=== PATIENT | male | born 1970 | race African-American/Black ===

== ENCOUNTER 2017-04-04 12:31 | Inpatient (IN) | payer OTHER ==
[2017-04-04 13:41] VITALS: BMI 20.3
--- NOTE | 2017-04-04 17:39 | HP ---
CIWA Score - CIWA Score Nausea/Vomitin-Mild Nausea/No Vomiting Muscle Tremors: 4-Moderate,w/Arms Extend Anxiety: 4-Mod. Anxious/Guarded Agitation: 4-Moderately Restless Paroxysmal Sweats: 1-Minimal Palms Moist Orientation: 2-Disoriented Date<2 days Tacttile Disturbances: 0-None Auditory Disturbances: 0-None Visual Disturbances: 0-None Headache: 0-None Present CIWA-Ar Total Score: 16 Admission ROS S - HPI Chief Complaint: WITHDRAWAL SX Allergies/Adverse Reactions: Allergies Allergy/AdvReac Type Severity Reaction Status Date / Time cashew nut Allergy Verified 04/04/17 17:46 peanut Allergy Verified 04/04/17 17:46 Penicillins Allergy Verified 04/04/17 17:46 History of Present Illness: 46 YEARS OLD MALE WITH LONG HISTORY OF ALCOHOL NICOTINE DEPENDENCE HAS HYPERTENSION LAST ANTIHYPERTENSANT 03/2016 WEIGHT LOSS, HIV SINCE 2002 TREATED WITH COMPLERA X 2 YEARS NONE COMPLIANCE WITH MEDICATION AMBULATE WITH CANE DUE TO LEFT HIP SURGERY 2016 AND BIPOLAR II IS ADMITTED TO DETOX Exam Limitations: No Limitations - Ebola screening Have you traveled outside of the country in the last 21 days: No Have you had contact with anyone from an Ebola affected area: No Have you been sick,other than usual withdrawal symptoms: No Do you have a fever: No - Review of Systems Constitutional: Loss of Appetite, Changes in sleep, Unintentional Wgt. Loss, Unexplained wgt Loss EENT: reports: Blurred Vision (NEED EYE GLASSES) Respiratory: reports: SOB with Exertion Cardiac: reports: No Symptoms Reported GI: reports: Nausea, Poor Appetite, Poor Fluid Intake, Abdominal cramping : reports: No Symptoms Reported Musculoskeletal: reports: Back Pain, Joint Pain (LEFT HIP) Integumentary: reports: No Symptoms Reported Neuro: reports: Tremors Endocrine: reports: No Symptoms Reported Hematology: reports: No Symptoms Reported Psychiatric: reports: Judgement Intact, Anxious, Depressed Other Systems: Reviewed and Negative Patient History - Patient Medical History Hx Anemia: No Hx Asthma: Yes Hx Chronic Obstructive Pulmonary Disease (COPD): No Hx Cancer: No Hx Cardiac Disorders: No Hx Congestive Heart Failure: No Hx Hypertension: Yes Hx Hypercholesterolemia: No Hx Pacemaker: No HX Cerebrovascular Accident: No Hx Seizures: No Hx Dementia: No Hx Diabetes: No Hx Gastrointestinal Disorders: No Hx Liver Disease: No Hx Genitourinary Disorders: No Hx Sexually Transmitted Disorders: No Hx Renal Disease (ESRD): No Hx Thyroid Disease: No Hx Human Immunodeficiency Virus (HIV): No Hx Hepatitis C: No Hx Depression: No Hx Suicide Attempt: No Hx Bipolar Disorder: Yes Hx Schizophrenia: No - Patient Surgical History Past Surgical History: Yes Hx Neurologic Surgery: No Hx Cataract Extraction: No Hx Cardiac Surgery: No Hx Lung Surgery: No Hx Breast Surgery: No Hx Breast Biopsy: No Hx Abdominal Surgery: Yes (2 YEARS OLD) Hx Appendectomy: No Hx Cholecystectomy: No Hx Genitourinary Surgery: No Hx Orthopedic Surgery: Yes (2017 LEFT HIP REPLACEMENT) Anesthesia Reaction: No - PPD History Previous Implant?: Yes Documented Results: Negative w/o proof Implanted On Prior [facility] Admission?: No PPD to be Administered?: Yes - Smoking Cessation Smoking history: Current every day smoker Have you smoked in the past 12 months: Yes Aproximately how many cigarettes per day: 3 Cigars Per Day: 0 Hx Chewing Tobacco Use: No Initiated information on smoking cessation: Yes 'Breaking Loose' booklet given: 04/04/17 - Substance & Tx. History Hx Alcohol Use: Yes Hx Substance Use: Yes Substance Use Type: Alcohol, Cocaine Hx Substance Use Treatment: Yes (2010 [facility]) - Substances Abused Alcohol Route: Oral Frequency: Daily Amount used: [place] Age of first use: 16 Date of Last Use: 04/04/17 Family Disease History - Family Disease History Family History: Unremarkable Admission Physical Exam B[facility] - Vital Signs Vital Signs: Vital Signs - 24 hr 04/04/17 13:26 Temperature 98.3 F Pulse Rate 107 H Respiratory 18 Rate Blood Pressure 130/70 - Physical General Appearance: Yes: Appropriately Dressed, Mild Distress, Thin, Tremorous, Irritable, Sweating, Anxious HEENTM: Yes: Hearing grossly Normal, Normal ENT Inspection, Normocephalic, Normal Voice Respiratory: Yes: Chest Non-Tender, Lungs Clear, Normal Breath Sounds, No Respiratory Distress, No Accessory Muscle Use Neck: Yes: Supple, Trachea in good position Breast: Yes: Breasts Symetrical Cardiology: Yes: Regular Rhythm, S1, S2, Tachycardia Abdominal: Yes: Non Tender, Soft, Increased Bowel Sounds, Surgical Scar Genitourinary: Yes: Within Normal Limits Back: Yes: Normal Inspection Musculoskeletal: Yes: Gait Steady (CANE), Back pain, Muscle Pain (LEFT HIP) Extremities: Yes: Normal Inspection (LEFT HIP SCAR), Non-Tender, Tremors Neurological: Yes: Alert, Motor Strength 5/5 (LIMP TO THE LEFT), Normal Response Integumentary: Yes: Warm Lymphatic: Yes: Within Normal Limits - Diagnostic (1) Alcohol dependence with uncomplicated withdrawal Current Visit: Yes Status: Acute (2) Weight loss Current Visit: Yes Status: Acute (3) Hypertension Current Visit: Yes Status: Chronic Qualifiers: Hypertension type: essential hypertension Qualified Code(s): I10 - Essential (primary) hypertension Comment: NO TREATMENT X "YEARS" (4) HIV (human immunodeficiency virus infection) Current Visit: Yes Status: Chronic Comment: NONE COMPLIANCE WITH COMPLERA (5) Use of cane as ambulatory aid Current Visit: Yes Status: Chronic (6) S/p left hip fracture Current Visit: Yes Status: Resolved Comment: 2017 (7) Asthma Current Visit: Yes Status: Chronic Qualifiers: Asthma severity: mild Asthma persistence: intermittent Asthma complication type: with status asthmaticus Qualified Code(s): J45.22 - Mild intermittent asthma with status asthmaticus (8) Bipolar II disorder Current Visit: Yes Status: Suspected Cleared for Admission [facility] - Detox or Rehab [facility] Level of Care: Medically Managed Detox Regimen/Protocol: Librium S Breath Alcohol Content Breath Alcohol Content: 0 Urine Drug Screen - Control Is Test Valid: Yes - Results Drug Screen Negative: No Urine Drug Screen Results: CARRIE-Cocaine
[2017-04-04] MEDS ORDERED: MAGNESIUM HYDROX 2400MG/30ML ORAL SUSPENSION 30 ML CUP PO PRN (17:53)
[2017-04-04] MEDS ORDERED: MAGNESIUM CITRATE 300 ML BOTTLE PO PRN (17:53)
[2017-04-04] MEDS ORDERED: guaiFENesin/D-METHORPHAN HB 10 ML UNIT-DOSE CUPS PO PRN (17:53)
[2017-04-04] MEDS ORDERED: ACETAMINOPHEN 325 MG TABLET (FP) PO PRN (17:53)
[2017-04-04] MEDS ORDERED: NICOTINE POLACRILEX 2 MG GUM BC PRN (17:53)
[2017-04-04] MEDS ORDERED: P-EPHED 60MG/TRIPROLIDI 2.5MG TABLET PO PRN (17:53)
[2017-04-04] MEDS ORDERED: LOPERAMIDE HCL 2 MG CAPSULE PO PRN (17:53)
[2017-04-04] MEDS ORDERED: chlordiazePOXIDE HCL 25 MG CAPSULE PO PRN (17:53)
[2017-04-04] MEDS ORDERED: MENTHOL/PHENOL 1 EACH UD MM PRN (17:53)
[2017-04-04] MEDS ORDERED: MAG HYDROX/AL HYDROX/SIMETH 30 ML UNIT-DOSE CUP PO PRN (17:53)
[2017-04-04] MEDS ORDERED: IBUPROFEN 400 MG TABLET (FP) PO PRN (17:53)
[2017-04-04] MEDS: ALBUTEROL SO4 18 GM HFA INHALER IH SCH ×2 (20:29→22:03)
[2017-04-04] MEDS: chlordiazePOXIDE HCL 25 MG CAPSULE PO SCH (22:03)
[2017-04-04] MEDS: THIAMINE HCL 100 MG TABLET (FP) PO SCH (22:03)
[2017-04-04 22:08] LABS: URINE APPEARANCE CLEAR; URINE BILIRUBIN NEGATIVE (NEGATIVE); URINE BLOOD 2+ (NEGATIVE); URINE COLOR LTYELLOW; URINE GLUCOSE (UA) NEGATIVE (NEGATIVE); URINE KETONE TRACE (NEGATIVE); URINE LEUK ESTERASE TRACE (NEGATIVE); URINE NITRITE NEGATIVE (NEGATIVE); URINE PROTEIN NEGATIVE (NEGATIVE); URINE UROBILINOGEN NEGATIVE mg/dL (0.2-1.0)
[2017-04-04 22:17] LABS: EPI CELLS RARE /HPF (FEW); URINE HYALINE CAST 1 /lpf; URINE MUCUS RARE
[2017-04-05] MEDS: ALBUTEROL SO4 18 GM HFA INHALER IH SCH ×6 (05:37→22:03)
[2017-04-05] MEDS: chlordiazePOXIDE HCL 25 MG CAPSULE PO SCH ×4 (05:40→22:02)
[2017-04-05 10:04] LABS: HEMATOCRIT 38.6 % (35.4-49); HEMOGLOBIN 12.6 GM/dL (11.7-16.9); MCH 28.3 pg (25.7-33.7); MCHC 32.7 g/dl (32.0-35.9); MEAN CELL VOLUME 86.7 fl (80-96); MEAN PLT VOLUME 8.5 fl (7.5-11.1); PLATELET COUNT 234 K/MM3 (134-434); RBC 4.45 M/mm3 (4.00-5.60); RDW 15.9 % (11.9-15.9); WHITE BLOOD COUNT 4.8 K/mm3 (4.0-10.0)
[2017-04-05 10:13] LABS: CHLORIDE 108 mmol/L (98-107); POTASSIUM 3.8 mmol/L (3.5-5.1); SODIUM 144 mmol/L (136-145)
[2017-04-05] MEDS: PRENATAL VITAMINS W/ FOLIC ACID TABLET (FP) PO SCH (10:16)
[2017-04-05] MEDS: NICOTINE 14 MG/24 HOURS TOPICAL PATCH TD SCH (10:17)
[2017-04-05 10:26] LABS: ALBUMIN 3.1 g/dl (3.4-5.0); ALK PHOS 90 U/L (45-117); ANION GAP 10 (8-16); BILIRUBIN,TOTAL 0.5 mg/dL (0.2-1.0); BLOOD UREA NITROGEN 20 mg/dL (7-18); CALCIUM 8.1 mg/dL (8.5-10.1); CO2 26 mmol/L (21-32); CREATININE 1.2 mg/dL (0.7-1.3); GLUCOSE,RANDOM 107 mg/dL (74-106); SGOT/AST 35 U/L (15-37); SGPT/ALT 30 U/L (12-78); TOT PROT 6.5 g/dl (6.4-8.2)
--- NOTE | 2017-04-05 10:44 | PN ---
[facility] CIWA - CIWA Score Nausea/Vomitin-No Nausea/No Vomiting Muscle Tremors: 4-Moderate,w/Arms Extend Anxiety: 4-Mod. Anxious/Guarded Agitation: 4-Moderately Restless Paroxysmal Sweats: 1-Minimal Palms Moist Orientation: 0-Oriented Tacttile Disturbances: 3-Moderate Itch/Numb/Burn Auditory Disturbances: 0-None Visual Disturbances: 0-None Headache: 0-None Present CIWA-Ar Total Score: 16 BHS Progress Note (SOAP) Subjective: ANXIETY,SWEATS,BACK ACHE. Objective: 04/05/17 10:41 Vital Signs Temperature 97.0 F L 04/05/17 10:07 Pulse Rate 84 04/05/17 10:07 Respiratory Rate 18 04/05/17 10:07 Blood Pressure 122/87 04/05/17 10:07 O2 Sat by Pulse Oximetry (%) Laboratory Last Values WBC 4.8 K/mm3 (4.0-10.0) 04/05/17 07:00 RBC 4.45 M/mm3 (4.00-5.60) 04/05/17 07:00 Hgb 12.6 GM/dL (11.7-16.9) 04/05/17 07:00 Hct 38.6 % (35.4-49) 04/05/17 07:00 MCV 86.7 fl (80-96) 04/05/17 07:00 MCH 28.3 pg (25.7-33.7) 04/05/17 07:00 MCHC 32.7 g/dl (32.0-35.9) 04/05/17 07:00 RDW 15.9 % (11.9-15.9) 04/05/17 07:00 Plt Count 234 K/MM3 (134-434) 04/05/17 07:00 MPV 8.5 fl (7.5-11.1) 04/05/17 07:00 Sodium 144 mmol/L (136-145) 04/05/17 07:00 Potassium 3.8 mmol/L (3.5-5.1) 04/05/17 07:00 Chloride 108 mmol/L (98-107) H 04/05/17 07:00 Carbon Dioxide 26 mmol/L (21-32) 04/05/17 07:00 Anion Gap 10 (8-16) 04/05/17 07:00 BUN 20 mg/dL (7-18) H 04/05/17 07:00 Creatinine 1.2 mg/dL (0.7-1.3) 04/05/17 07:00 Creat Clearance w eGFR > 60 (>60) 04/05/17 07:00 Random Glucose 107 mg/dL (74-106) H 04/05/17 07:00 Calcium 8.1 mg/dL (8.5-10.1) L 04/05/17 07:00 Total Bilirubin 0.5 mg/dL (0.2-1.0) 04/05/17 07:00 AST 35 U/L (15-37) 04/05/17 07:00 ALT 30 U/L (12-78) 04/05/17 07:00 Alkaline Phosphatase 90 U/L (45-117) 04/05/17 07:00 Total Protein 6.5 g/dl (6.4-8.2) 04/05/17 07:00 Albumin 3.1 g/dl (3.4-5.0) L 04/05/17 07:00 Urine Color Ltyellow 04/04/17 21:44 Urine Appearance Clear 04/04/17 21:44 Urine pH 5.0 (5.0-8.0) 04/04/17 21:44 Ur Specific [place] 1.014 (1.001-1.035) 04/04/17 21:44 Urine Protein Negative (NEGATIVE) 04/04/17 21:44 Urine Glucose (UA) Negative (NEGATIVE) 04/04/17 21:44 Urine Ketones Trace (NEGATIVE) H 04/04/17 21:44 Urine Blood 2+ (NEGATIVE) H 04/04/17 21:44 Urine Nitrite Negative (NEGATIVE) 04/04/17 21:44 Urine Bilirubin Negative (NEGATIVE) 04/04/17 21:44 Urine Urobilinogen Negative mg/dL (0.2-1.0) 04/04/17 21:44 Ur Leukocyte Esterase Trace (NEGATIVE) 04/04/17 21:44 Urine WBC (Auto) 6 /hpf (3-5) 04/04/17 21:44 Urine RBC (Auto) 7 /hpf (0-3) 04/04/17 21:44 Ur Epithelial Cells Rare /HPF (FEW) 04/04/17 21:44 Hyaline Casts 1 /lpf 04/04/17 21:44 Urine Mucus Rare 04/04/17 21:44 LABS NOTED. Assessment: 04/05/17 10:43 WITHDRAWAL SX Plan: CONTINUE DETOX REPEAT UA;UC ORDERED.
--- NOTE | 2017-04-05 10:45 | CONSULT ---
[facility] Psychiatric Consult - Data Date of interview: 04/05/17 Admission source: SRO Identifying data: Mr Perkins is a 46 years old Black male, father of 4 children, unemployed on [employer], domiciled living in a room seeking detox treatment for alcohol Substance Abuse History: Reports history of alcohol use. He started drinking alcohol at age 16, consumes one pint daily. Last drank on 04/04/17 Medical History: Significant for hypertension, HIV, bronchial astma and history of abdominal surgery and orthosurgery for left hip replacement. Smokes 3 cigarettes Psychiatric History: Denies history of previous psychiatric treatment Physical/Sexual Abuse/Trauma History: Denies history of physical, sexual abuse as well as DV relationship Additional Comment: Reports history of multiple previous arrests including one felony conviction. No parole/probation currently Mental Status Exam - Mental Status Exam Alert and Oriented to: Time, Place, Person Cognitive Function: Fair Patient Appearance: Disheveled Mood: Hopeful, Euthymic Patient Behavior: Cooperative Speech Pattern: Clear Voice Loudness: Normal Thought Process: Intact, Goal Oriented Hallucinations: Denies Suicidal Ideation: Denies Homicidal Ideation: Denies Insight/Judgement: Poor Sleep: Well Appetite: Good Muscle strength/Tone: Normal Gait/Station: Other (Use of cane as ambulatory aid) Psychiatric Findings - Problem List ([place] 1, 2,3) (1) Alcohol dependence with uncomplicated withdrawal Current Visit: Yes Status: Acute (2) Nicotine dependence Current Visit: Yes Status: Acute (3) Asthma Current Visit: Yes Status: Chronic Qualifiers: Asthma severity: mild Asthma persistence: intermittent Asthma complication type: with status asthmaticus Qualified Code(s): J45.22 - Mild intermittent asthma with status asthmaticus (4) HIV (human immunodeficiency virus infection) Current Visit: Yes Status: Chronic Comment: NONE COMPLIANCE WITH COMPLERA (5) S/p left hip fracture Current Visit: Yes Status: Resolved Comment: 2017 (6) Use of cane as ambulatory aid Current Visit: Yes Status: Chronic - Initial Treatment Plan Initial Treatment Plan: Monitor progress
--- NOTE | 2017-04-05 10:55 | EKG ---
Test Reason : Blood Pressure : / mmHG Vent. Rate : 078 BPM Atrial Rate : 078 BPM P-R Int : 134 ms QRS Dur : 090 ms QT Int : 368 ms P-R-T Axes : 039 076 055 degrees QTc Int : 419 ms SINUS RHYTHM WITH PREMATURE ATRIAL COMPLEXES VOLTAGE CRITERIA FOR LEFT VENTRICULAR HYPERTROPHY ABNORMAL ECG NO PREVIOUS ECGS AVAILABLE Confirmed by MD Talha, Morgan ([id number]) on 04/05/2017 10:55:19 AM Referred By: Elgin Figueroa Confirmed By:Morgan Palencia MD
[2017-04-05 16:34] LABS: URINE APPEARANCE CLEAR; URINE BILIRUBIN NEGATIVE (NEGATIVE); URINE BLOOD NEGATIVE (NEGATIVE); URINE COLOR LTYELLOW; URINE GLUCOSE (UA) NEGATIVE (NEGATIVE); URINE KETONE NEGATIVE (NEGATIVE); URINE NITRITE NEGATIVE (NEGATIVE); URINE PROTEIN NEGATIVE (NEGATIVE); URINE UROBILINOGEN NEGATIVE mg/dL (0.2-1.0)
--- NOTE | 2017-04-05 17:03 | EKG ---
Test Reason : Blood Pressure : / mmHG Vent. Rate : 083 BPM Atrial Rate : 083 BPM P-R Int : 144 ms QRS Dur : 102 ms QT Int : 382 ms P-R-T Axes : 064 060 038 degrees QTc Int : 448 ms NORMAL SINUS RHYTHM MINIMAL VOLTAGE CRITERIA FOR LVH, MAY BE NORMAL VARIANT BORDERLINE ECG WHEN COMPARED WITH ECG OF 04-APR-2017 21:35, PREMATURE ATRIAL COMPLEXES ARE NO LONGER PRESENT Confirmed by MD Talha, Morgan ([id number]) on 04/05/2017 5:02:45 PM Referred By: Elgin Figueroa Confirmed By:Morgan Palencia MD
[2017-04-05 17:07] LABS: URINE LEUK ESTERASE 1+ (NEGATIVE)
[2017-04-05 17:22] LABS: EPI CELLS RARE /HPF (FEW); URINE MUCUS RARE
[2017-04-05] MEDS: THIAMINE HCL 100 MG TABLET (FP) PO SCH (22:02)
[2017-04-06] MEDS: chlordiazePOXIDE HCL 25 MG CAPSULE PO SCH ×3 (05:51→17:32)
[2017-04-06] MEDS: ALBUTEROL SO4 18 GM HFA INHALER IH SCH ×3 (06:13→13:12)
[2017-04-06] MEDS: NICOTINE 14 MG/24 HOURS TOPICAL PATCH TD SCH (10:05)
[2017-04-06] MEDS: PRENATAL VITAMINS W/ FOLIC ACID TABLET (FP) PO SCH (10:05)
--- NOTE | 2017-04-06 10:56 | PN ---
[facility] CIWA - CIWA Score Nausea/Vomitin-No Nausea/No Vomiting Muscle Tremors: 4-Moderate,w/Arms Extend Anxiety: 5 Agitation: 4-Moderately Restless Paroxysmal Sweats: 1-Minimal Palms Moist Orientation: 0-Oriented Tacttile Disturbances: 3-Moderate Itch/Numb/Burn Auditory Disturbances: 0-None Visual Disturbances: 0-None Headache: 0-None Present CIWA-Ar Total Score: 17 S Progress Note (SOAP) Subjective: IRRITABILITY,ANXIETY,SWEATS,CHILLS. PT WORRIED AND STATING I NEED MY COMPLERA, AND THAT HE LAST TOOK IT 3 DAYS AGO. Objective: 04/06/17 10:54 Vital Signs Temperature 96.2 F L 04/06/17 09:11 Pulse Rate 87 04/06/17 09:11 Respiratory Rate 18 04/06/17 09:11 Blood Pressure 122/87 04/06/17 09:11 O2 Sat by Pulse Oximetry (%) Laboratory Last Values WBC 4.8 K/mm3 (4.0-10.0) 04/05/17 07:00 RBC 4.45 M/mm3 (4.00-5.60) 04/05/17 07:00 Hgb 12.6 GM/dL (11.7-16.9) 04/05/17 07:00 Hct 38.6 % (35.4-49) 04/05/17 07:00 MCV 86.7 fl (80-96) 04/05/17 07:00 MCH 28.3 pg (25.7-33.7) 04/05/17 07:00 MCHC 32.7 g/dl (32.0-35.9) 04/05/17 07:00 RDW 15.9 % (11.9-15.9) 04/05/17 07:00 Plt Count 234 K/MM3 (134-434) 04/05/17 07:00 MPV 8.5 fl (7.5-11.1) 04/05/17 07:00 Sodium 144 mmol/L (136-145) 04/05/17 07:00 Potassium 3.8 mmol/L (3.5-5.1) 04/05/17 07:00 Chloride 108 mmol/L (98-107) H 04/05/17 07:00 Carbon Dioxide 26 mmol/L (21-32) 04/05/17 07:00 Anion Gap 10 (8-16) 04/05/17 07:00 BUN 20 mg/dL (7-18) H 04/05/17 07:00 Creatinine 1.2 mg/dL (0.7-1.3) 04/05/17 07:00 Creat Clearance w eGFR > 60 (>60) 04/05/17 07:00 Random Glucose 107 mg/dL (74-106) H 04/05/17 07:00 Calcium 8.1 mg/dL (8.5-10.1) L 04/05/17 07:00 Total Bilirubin 0.5 mg/dL (0.2-1.0) 04/05/17 07:00 AST 35 U/L (15-37) 04/05/17 07:00 ALT 30 U/L (12-78) 04/05/17 07:00 Alkaline Phosphatase 90 U/L (45-117) 04/05/17 07:00 Total Protein 6.5 g/dl (6.4-8.2) 04/05/17 07:00 Albumin 3.1 g/dl (3.4-5.0) L 04/05/17 07:00 Urine Color Ltyellow 04/05/17 12:30 Urine Appearance Clear 04/05/17 12:30 Urine pH 5.0 (5.0-8.0) 04/05/17 12:30 Ur Specific [place] 1.013 (1.001-1.035) 04/05/17 12:30 Urine Protein Negative (NEGATIVE) 04/05/17 12:30 Urine Glucose (UA) Negative (NEGATIVE) 04/05/17 12:30 Urine Ketones Negative (NEGATIVE) 04/05/17 12:30 Urine Blood Negative (NEGATIVE) 04/05/17 12:30 Urine Nitrite Negative (NEGATIVE) 04/05/17 12:30 Urine Bilirubin Negative (NEGATIVE) 04/05/17 12:30 Urine Urobilinogen Negative mg/dL (0.2-1.0) 04/05/17 12:30 Ur Leukocyte Esterase 1+ (NEGATIVE) H 04/05/17 12:30 Urine WBC (Auto) 7 /hpf (3-5) 04/05/17 12:30 Urine RBC (Auto) <1 /hpf (0-3) 04/05/17 12:30 Ur Epithelial Cells Rare /HPF (FEW) 04/05/17 12:30 Hyaline Casts 1 /lpf 04/04/17 21:44 Urine Mucus Rare 04/05/17 12:30 RPR Titer Nonreactive (NONREACTIVE) 04/05/17 07:00 UA NOTED Assessment: 04/06/17 10:54 WITHDRAWAL SX Plan: CONTINUE DETOX REORDERED COMPLERA.
[2017-04-06] MEDS: EMTRICITAB/RILPIVIRINE/TENOFOV 1 EACH TABLET PO SCH (13:11)
[2017-04-06] MEDS ORDERED: ALBUTEROL SO4 18 GM HFA INHALER IH PRN (13:25)
[2017-04-06] MEDS: THIAMINE HCL 100 MG TABLET (FP) PO SCH (22:07)
[2017-04-06] MEDS: chlordiazePOXIDE 5 MG CAPSULE PO SCH (22:07)
[2017-04-07] MEDS: chlordiazePOXIDE 5 MG CAPSULE PO SCH ×3 (05:07→17:30)
[2017-04-07] MEDS: EMTRICITAB/RILPIVIRINE/TENOFOV 1 EACH TABLET PO SCH (07:22)
[2017-04-07] MEDS: PRENATAL VITAMINS W/ FOLIC ACID TABLET (FP) PO SCH (10:40)
[2017-04-07] MEDS: NICOTINE 14 MG/24 HOURS TOPICAL PATCH TD SCH (10:40)
--- NOTE | 2017-04-07 10:44 | PN ---
S Progress Note (SOAP) Subjective: REPORTS DECREASED TREMORS, ANXIETY BUT JUST " A LITTLE TIRED". ALERT O X 3. NAD. Objective: 04/07/17 10:43 Vital Signs Temperature 95.7 F L 04/07/17 09:03 Pulse Rate 86 04/07/17 09:03 Respiratory Rate 18 04/07/17 09:03 Blood Pressure 110/74 04/07/17 09:03 O2 Sat by Pulse Oximetry (%) Laboratory Last Values WBC 4.8 K/mm3 (4.0-10.0) 04/05/17 07:00 RBC 4.45 M/mm3 (4.00-5.60) 04/05/17 07:00 Hgb 12.6 GM/dL (11.7-16.9) 04/05/17 07:00 Hct 38.6 % (35.4-49) 04/05/17 07:00 MCV 86.7 fl (80-96) 04/05/17 07:00 MCH 28.3 pg (25.7-33.7) 04/05/17 07:00 MCHC 32.7 g/dl (32.0-35.9) 04/05/17 07:00 RDW 15.9 % (11.9-15.9) 04/05/17 07:00 Plt Count 234 K/MM3 (134-434) 04/05/17 07:00 MPV 8.5 fl (7.5-11.1) 04/05/17 07:00 Sodium 144 mmol/L (136-145) 04/05/17 07:00 Potassium 3.8 mmol/L (3.5-5.1) 04/05/17 07:00 Chloride 108 mmol/L (98-107) H 04/05/17 07:00 Carbon Dioxide 26 mmol/L (21-32) 04/05/17 07:00 Anion Gap 10 (8-16) 04/05/17 07:00 BUN 20 mg/dL (7-18) H 04/05/17 07:00 Creatinine 1.2 mg/dL (0.7-1.3) 04/05/17 07:00 Creat Clearance w eGFR > 60 (>60) 04/05/17 07:00 Random Glucose 107 mg/dL (74-106) H 04/05/17 07:00 Calcium 8.1 mg/dL (8.5-10.1) L 04/05/17 07:00 Total Bilirubin 0.5 mg/dL (0.2-1.0) 04/05/17 07:00 AST 35 U/L (15-37) 04/05/17 07:00 ALT 30 U/L (12-78) 04/05/17 07:00 Alkaline Phosphatase 90 U/L (45-117) 04/05/17 07:00 Total Protein 6.5 g/dl (6.4-8.2) 04/05/17 07:00 Albumin 3.1 g/dl (3.4-5.0) L 04/05/17 07:00 Urine Color Ltyellow 04/05/17 12:30 Urine Appearance Clear 04/05/17 12:30 Urine pH 5.0 (5.0-8.0) 04/05/17 12:30 Ur Specific [place] 1.013 (1.001-1.035) 04/05/17 12:30 Urine Protein Negative (NEGATIVE) 04/05/17 12:30 Urine Glucose (UA) Negative (NEGATIVE) 04/05/17 12:30 Urine Ketones Negative (NEGATIVE) 04/05/17 12:30 Urine Blood Negative (NEGATIVE) 04/05/17 12:30 Urine Nitrite Negative (NEGATIVE) 04/05/17 12:30 Urine Bilirubin Negative (NEGATIVE) 04/05/17 12:30 Urine Urobilinogen Negative mg/dL (0.2-1.0) 04/05/17 12:30 Ur Leukocyte Esterase 1+ (NEGATIVE) H 04/05/17 12:30 Urine WBC (Auto) 7 /hpf (3-5) 04/05/17 12:30 Urine RBC (Auto) <1 /hpf (0-3) 04/05/17 12:30 Ur Epithelial Cells Rare /HPF (FEW) 04/05/17 12:30 Hyaline Casts 1 /lpf 04/04/17 21:44 Urine Mucus Rare 04/05/17 12:30 RPR Titer Nonreactive (NONREACTIVE) 04/05/17 07:00 UC RESULT PENDING Assessment: 04/07/17 10:44 WITHDRAWAL SX Plan: CONTINUE DETOX
[2017-04-07] MEDS: chlordiazePOXIDE HCL 10 MG CAPSULE PO SCH (22:06)
[2017-04-07] MEDS: THIAMINE HCL 100 MG TABLET (FP) PO SCH (22:06)
[2017-04-08] MEDS: chlordiazePOXIDE HCL 10 MG CAPSULE PO SCH ×2 (06:18→10:09)
[2017-04-08] MEDS: EMTRICITAB/RILPIVIRINE/TENOFOV 1 EACH TABLET PO SCH (08:23)
[2017-04-08 09:38] VITALS: BP 130/82; PULSE 90; TEMP 96.3
--- NOTE | 2017-04-08 09:50 | DS ---
[facility] Detox Discharge Summary Admission Date: 04/04/17 Discharge Date: 04/08/17 - History Present History: Alcohol Dependence Additional Comments: DETOX COMPLETED. ALERT O X 3. NAD. REFERRED TO REHAB AND TO BE TRANSPORTED TODAY BY [facility]. Pertinent Past History: SEE DX BELOW - Physical Exam Results Vital Signs: Vital Signs Temperature 96.3 F L 04/08/17 09:37 Pulse Rate 90 04/08/17 09:37 Respiratory Rate 20 04/08/17 09:37 Blood Pressure 130/82 04/08/17 09:37 O2 Sat by Pulse Oximetry (%) Pertinent Admission Physical Exam Findings: WITHDRAWAL SX Laboratory Last Values WBC 4.8 K/mm3 (4.0-10.0) 04/05/17 07:00 RBC 4.45 M/mm3 (4.00-5.60) 04/05/17 07:00 Hgb 12.6 GM/dL (11.7-16.9) 04/05/17 07:00 Hct 38.6 % (35.4-49) 04/05/17 07:00 MCV 86.7 fl (80-96) 04/05/17 07:00 MCH 28.3 pg (25.7-33.7) 04/05/17 07:00 MCHC 32.7 g/dl (32.0-35.9) 04/05/17 07:00 RDW 15.9 % (11.9-15.9) 04/05/17 07:00 Plt Count 234 K/MM3 (134-434) 04/05/17 07:00 MPV 8.5 fl (7.5-11.1) 04/05/17 07:00 Sodium 144 mmol/L (136-145) 04/05/17 07:00 Potassium 3.8 mmol/L (3.5-5.1) 04/05/17 07:00 Chloride 108 mmol/L (98-107) H 04/05/17 07:00 Carbon Dioxide 26 mmol/L (21-32) 04/05/17 07:00 Anion Gap 10 (8-16) 04/05/17 07:00 BUN 20 mg/dL (7-18) H 04/05/17 07:00 Creatinine 1.2 mg/dL (0.7-1.3) 04/05/17 07:00 Creat Clearance w eGFR > 60 (>60) 04/05/17 07:00 Random Glucose 107 mg/dL (74-106) H 04/05/17 07:00 Calcium 8.1 mg/dL (8.5-10.1) L 04/05/17 07:00 Total Bilirubin 0.5 mg/dL (0.2-1.0) 04/05/17 07:00 AST 35 U/L (15-37) 04/05/17 07:00 ALT 30 U/L (12-78) 04/05/17 07:00 Alkaline Phosphatase 90 U/L (45-117) 04/05/17 07:00 Total Protein 6.5 g/dl (6.4-8.2) 04/05/17 07:00 Albumin 3.1 g/dl (3.4-5.0) L 04/05/17 07:00 Urine Color Ltyellow 04/05/17 12:30 Urine Appearance Clear 04/05/17 12:30 Urine pH 5.0 (5.0-8.0) 04/05/17 12:30 Ur Specific [place] 1.013 (1.001-1.035) 04/05/17 12:30 Urine Protein Negative (NEGATIVE) 04/05/17 12:30 Urine Glucose (UA) Negative (NEGATIVE) 04/05/17 12:30 Urine Ketones Negative (NEGATIVE) 04/05/17 12:30 Urine Blood Negative (NEGATIVE) 04/05/17 12:30 Urine Nitrite Negative (NEGATIVE) 04/05/17 12:30 Urine Bilirubin Negative (NEGATIVE) 04/05/17 12:30 Urine Urobilinogen Negative mg/dL (0.2-1.0) 04/05/17 12:30 Ur Leukocyte Esterase 1+ (NEGATIVE) H 04/05/17 12:30 Urine WBC (Auto) 7 /hpf (3-5) 04/05/17 12:30 Urine RBC (Auto) <1 /hpf (0-3) 04/05/17 12:30 Ur Epithelial Cells Rare /HPF (FEW) 04/05/17 12:30 Hyaline Casts 1 /lpf 04/04/17 21:44 Urine Mucus Rare 04/05/17 12:30 RPR Titer Nonreactive (NONREACTIVE) 04/05/17 07:00 UC = NO GROWTH - Treatment Hospital Course: Detox Protocol Followed, Detoxed Safely, Responded well, Discharged Condition Good, Rehab Referral Accepted Patient has Accepted a Rehab Referral to: [facility] - Medication Discharge Medications: Ambulatory Orders Albuterol Sulfate Inhaler - [Ventolin Hfa Inhaler -] 2 inh PO Q4H 04/04/17 Emtricitab/Rilpivirine/Tenofov [Complera -] 1 each PO DAILY 04/04/17 - Diagnosis (1) Alcohol dependence with uncomplicated withdrawal Current Visit: Yes Status: Acute (2) Nicotine dependence Current Visit: Yes Status: Acute Qualifiers: Nicotine product type: cigarettes Substance use status: in withdrawal Qualified Code(s): F17.213 - Nicotine dependence, cigarettes, with withdrawal (3) Weight loss Current Visit: Yes Status: Acute (4) Asthma Current Visit: Yes Status: Chronic Qualifiers: Asthma severity: mild Asthma persistence: intermittent Asthma complication type: with status asthmaticus Qualified Code(s): J45.22 - Mild intermittent asthma with status asthmaticus (5) HIV (human immunodeficiency virus infection) Current Visit: Yes Status: Chronic (6) Hypertension Current Visit: Yes Status: Chronic Qualifiers: Hypertension type: essential hypertension Qualified Code(s): I10 - Essential (primary) hypertension (7) Use of cane as ambulatory aid Current Visit: Yes Status: Chronic - AMA Did Patient Leave Against Medical Advice: No
[2017-04-08] MEDS: PRENATAL VITAMINS W/ FOLIC ACID TABLET (FP) PO SCH (10:07)
[2017-04-08] MEDS: NICOTINE 14 MG/24 HOURS TOPICAL PATCH TD SCH (10:08)
== END 2017-04-08 11:30 | disposition home or self-care (01) | DRG 775 ==
LOC: YASAS 12:31 → Y3N 18:37
PROVIDERS: ADMIT Internal Medicine; ATTEND Internal Medicine
PROC: HZ2ZZZZ Detoxification Services for Substance Abuse Treatment (ICD-10-PCS; principal; 2017-04-04)
DX: F10.230 Alcohol dependence with withdrawal, uncomplicated (principal); F17.213 Nicotine dependence, cigarettes, with withdrawal; F31.81 Bipolar II disorder; I10 Essential (primary) hypertension; J45.22 Mild intermittent asthma with status asthmaticus; Z21 Asymptomatic human immunodeficiency virus [HIV] infection status; R63.4 Abnormal weight loss; Z68.20 Body mass index [BMI] 20.0-20.9, adult; R26.89 Other abnormalities of gait and mobility; Z99.89 Dependence on other enabling machines and devices; Z87.81 Personal history of (healed) traumatic fracture
CPT/HCPCS: 36415; 80053; 81003; 81015; 85027; 86593; 87086; 93005; 93010